=== PATIENT | female | born 1975 | race Caucasian/White ===

== ENCOUNTER 2017-10-25 12:31 | Outpatient (CLI) | payer OTHER ==
--- NOTE | 2017-10-25 15:16 | ULT ---
LEFT LOWER EXTREMITY VENOUS DUPLEX STUDY: HISTORY: Left lower extremity pain and edema. TECHNIQUE: Deep veins of the left lower extremity are evaluated with ultrasound, color Doppler, and spectral lavonne lysis with compression. FINDINGS: Deep veins of the left lower extremity show normal blood flow and compression. No evidence of DVT. IMPRESSION: No evidence of left lower extremity deep vein thrombosis. POS: [facility]
== END 2017-10-25 12:32 | disposition home or self-care (01) ==
LOC: ULT 12:31
PROVIDERS: ATTEND Family Medicine
DX: M79.89 Other specified soft tissue disorders (principal)

== ENCOUNTER 2019-05-22 13:36 | Outpatient (CLI) | payer OTHER ==
--- NOTE | 2019-05-22 14:29 | MMO ---
Bilateral MAMMO Bilat Diag DDI+GEMA. CLINICAL HISTORY: Patient is 43 years old and is seen for diagnostic exam. The patient has no family history of breast cancer. The patient has no personal history of cancer. VIEWS: The views performed were: bilateral craniocaudal with tomosynthesis; bilateral mediolateral oblique with tomosynthesis; and bilateral mediolateral with tomosynthesis. FILMS COMPARED: The present examination has been compared to a prior imaging study performed at [facility] on 09/18/2016. This study has been interpreted with the assistance of computer-aided detection. MAMMOGRAM FINDINGS: There are scattered fibroglandular densities. There are stable benign appearing calcifications seen in both breasts. There are no suspicious masses, suspicious calcifications, or new areas of architectural distortion. IMPRESSION: THERE IS NO MAMMOGRAPHIC EVIDENCE OF MALIGNANCY. A ROUTINE FOLLOW-UP MAMMOGRAM IN 1 YEAR IS RECOMMENDED. THE RESULTS OF THIS EXAM WERE SENT TO THE PATIENT. ACR BI-RADS Category 2 - Benign finding MAMMOGRAPHY NOTE: 1. A negative mammogram report should not delay a biopsy if a dominant of clinically suspicious mass is present. 2. Approximately 10% to 15% of breast cancers are not detected by mammography. 3. Adenosis and dense breasts may obscure an underlying neoplasm. Reported by: JENSEN HENDRICKS MD Electonically Signed: [id number]
== END 2019-05-22 13:37 | disposition home or self-care (01) ==
LOC: BICMAMMO 13:36
PROVIDERS: ATTEND Family Medicine
DX: N64.52 Nipple discharge (principal)
CPT/HCPCS: 77066; G0279

== ENCOUNTER 2022-10-06 17:39 | Outpatient (CLI) | payer BC | END 2022-10-06 17:40 | disposition home or self-care (01) | LOC: SCSRAD 17:39 | PROVIDERS: ATTEND Internal Medicine Rheumatology | DX: M46.1 Sacroiliitis, not elsewhere classified (principal) | CPT/HCPCS: 72202 ==

== ENCOUNTER 2023-06-29 15:47 | Outpatient (CLI) | payer BC | END 2023-06-29 15:48 | disposition home or self-care (01) | LOC: BICRAD 15:47 | PROVIDERS: ATTEND Family Medicine | DX: M25.551 Pain in right hip (principal); M16.11 Unilateral primary osteoarthritis, right hip ==

== ENCOUNTER 2024-07-04 15:42 | Outpatient (CLI) | payer BC | END 2024-07-04 15:43 | disposition home or self-care (01) | LOC: SCSRAD 15:42 | PROVIDERS: ATTEND Family Medicine | DX: S99.911A Unspecified injury of right ankle, initial encounter (principal) ==